=== PATIENT | female | born 1985 | race Hispanic/Latino ===

== ENCOUNTER 2018-10-04 12:38 | Inpatient (IN) | payer BC ==
[2018-10-04] MEDS ORDERED: OXYTOCIN/LR 20 UNIT/1,000 ML BAG IV ONE (13:53)
[2018-10-04] MEDS ORDERED: METHYLERGONOVINE 0.2MG/ML AMP IM ONE (13:53)
[2018-10-04] MEDS ORDERED: CARBOPROST TROME 250 MCG/ML IM ONE (13:53)
[2018-10-04] MEDS ORDERED: LIDOCAINE 1% MPF 30 ML VIAL ONE (13:54)
[2018-10-04] MEDS ORDERED: CARBOPROST TROME 250 MCG/ML IM PRN ×2 (14:28→16:37)
[2018-10-04] MEDS ORDERED: Ringers Lactate 1,000 ML IV PRN (14:28)
[2018-10-04] MEDS ORDERED: METHYLERGONOVINE 0.2MG/ML AMP IM PRN ×2 (14:28→16:37)
[2018-10-04 14:54] LABS: Absolute Lymphocytes (CBC) 2.1 K/uL (0.7-4.9); Absolute Monocytes 0.9 K/uL (0.1-1.3); Absolute Neutrophil 10.7 K/uL (1.8-8.0); Basophils % 0.6 % (0-1.3); Eosinophils % 0.8 % (0-4.4); Hematocrit 37.5 % (36.0-45.0); Lymphocytes % 15.1 % (15.3-44.8); MPV 9.1 fL (7.6-11.3); Monocytes % 6.7 % (3.3-12.3); RBC Red Blood Cell Count 4.93 M/uL (3.86-4.86); RPR Titer ND
[2018-10-04 14:55] LABS: Urine Appearance CLEAR; Urine Bilirubin NEGATIVE (NEG); Urine Blood TRACE (NEG); Urine Color YELLOW; Urine Glucose NEGATIVE (NEG); Urine Protein NEGATIVE (NEG); Urine Specific Gravity 1.015 (1.005-1.030); Urine Urobilinogen 0.2 mg/dL (0.2-1.0); Urine pH 5.5 (5.0-7.0)
[2018-10-04 15:00] LABS: Urine Microscopic Reflex ORDER UMIC
[2018-10-04] MEDS ORDERED: Ringers Lactate 1,000 ML IV SCH (15:00)
[2018-10-04] MEDS ORDERED: OXYTOCIN/LR 20 UNIT/1,000 ML BAG IV SCH ×2 (15:00→17:00)
[2018-10-04 15:34] LABS: Urine Bacteria 20-50 /HPF (<20); Urine Culture Reflex Order REFLEXED; Urine Mucus 1+ /HPF (NONE SEEN); Urine RBC <5 /HPF (NONE SEEN)
[2018-10-04] MEDS ORDERED: METHYLERGONOVINE 0.2 MG TAB PO PRN (16:37)
[2018-10-04] MEDS ORDERED: ACETAMINOPHEN 500 MG TAB PO PRN (16:37)
[2018-10-04] MEDS ORDERED: ONDANSETRON 4 MG (ODT) TAB PO PRN (16:37)
[2018-10-04] MEDS ORDERED: IBUPROFEN 200 MG TAB PO PRN (16:37)
--- NOTE | 2018-10-04 16:40 | P.BOP ---
Preoperative diagnosis: 39+ wk Postoperative diagnosis: viable male infant delivered Primary procedure: SCVD Secondary procedure: repair 1 degree laceration/local Estimated blood loss: 350 Anesthesia: Local Complications: None Transferred to: Other (273) Condition: Good
--- NOTE | 2018-10-04 19:26 | PREOPHP ---
Date of Admission: 10/04/2018 History Of Present Illness: Ms. Hernandez is a 33-year-old, , female, 2, para 1-0-0-1, at 39+ weeks gestation. She has been followed by me during this without significa nt complications. She is admitted in labor, noted to be 5 cm dilated after starting contractions mor e frequently about midnight to this morning. The baby has been active. She denies rupture of membra claudia. Past Medical History: Please see record. Family History: Please see record. Review of Systems: She reports no recent cough, cold, fever, or chills. No recent nausea or vomiting. She denies any b reast lumps or breast knots. Baby has been active. She denies any bowel or bladder issues. Physical Examination: General: Reveals a pleasant female, in no apparent distress, in mild discomfort. Neck: Supple without adenopathy or thyromegaly. Lungs: Clear. Cardiac: Regular rate and rhythm without murmurs. Breasts: Not examined. Abdomen: Estimated weight 7+ pounds. Pelvic: Cervix now noted to be 7 cm dilated, vertex presentation, -1 station. Extremities: No cyanosis, clubbing, or edema. Impression: 39+ week , active labor. Plan: The patient will be admitted. A scalp electrode placed. We will augment with Pitocin b ecause contractions are only every 4-5 minutes apart. She is content to not receive any analgesia at this point. MARYLOU/MAHAMED Voice ID: [id number]
[2018-10-04 22:23] LABS: RPR (Rapid Plasma Reagin) NON-REACT (NON-REACT)
[2018-10-05 15:19] VITALS: BP 120/78; TEMP 98.1
--- NOTE | 2018-10-05 17:26 | OP ---
Surgeon: Phil Segal MD Delivery Summary: Ms. Hernandez is a 33-year-old, , female, 2, para 1-0-0-1, a t 39+ weeks gestation, admitted with contractions getting stronger since midnight and noted to be 5 c m dilated. Rupture of membranes was performed. Pitocin augmentation of labor was begun because of s omewhat irregular contractions. She had a first stage of labor of approximately 16 hours and 9 minut es, second stage of labor of 13 minutes. She delivered by spontaneous controlled vaginal delivery an 8-pound male infant, 9 and 9 with no analgesia. After delayed cord clamping, cord was clamped , cut, and the infant placed on mother's upper abdomen. Cord blood was obtained. Placenta was spont aneously expelled and appeared to be intact. Intrauterine examination revealed no retained placental fragments. She suffered a small right posterior perineal first-degree laceration, which was repaire d with a [id number] suture of 3-0 Vicryl. Estimated total blood loss was approximately 350 cc. MARYLOU/MAHAMED Voice ID: [id number] Report ID: [id number]
--- NOTE | 2018-10-05 17:32 | DS ---
Final Hospital Discharge Diagnosis: 39+ week , delivered. Complications: None. Procedures: Artificial rupture of membranes. Pitocin augmentation of labor. Spontaneous controlled vaginal delivery of viable male . Repair of first degree perineal laceration. Hospital Course: The patient is a 33-year-old, , female, 2, para 1-0-0-1, a t term, admitted in labor. She had an uneventful labor and delivery, augmented with Pitocin. She del ivered an 8-pound male infant, 9 and 9, was dismissed on the first day, ambulatory, on a select diet with routine post vaginal delivery activity restrictions, to be seen back in my offi ce in 1 week and 6 weeks. She had an admission hemoglobin and hematocrit of 12.3 and 37.5, dismissal hematocrit of 34.8. She is Rh positive blood type. Rubella immune. RPR nonreactive. She will be dismissed to take ibuprofen or Tylenol for any discomfort and to continue taking her iron an d vitamins. MARYLOU/MAHAMED Voice ID: [id number] Report ID: [id number]
[2018-10-09 03:59] LABS: HBsAG Nonreactive (Nonreactive)
== END 2018-10-05 19:15 | disposition home or self-care (01) | DRG 807 ==
LOC: L&D 12:38 → 2ND-WC 13:42
PROVIDERS: ADMIT Specialist; ATTEND Specialist
PROC: 10E0XZZ Delivery of Products of Conception, External Approach (ICD-10-PCS; principal; 2018-10-04)
PROC: 0HQ9XZZ Repair Perineum Skin, External Approach (ICD-10-PCS; 2018-10-04)
PROC: 10907ZC Drainage of Amniotic Fluid, Therapeutic from Products of Conception, Via Natural or Artificial Opening (ICD-10-PCS; 2018-10-04)
DX: O70.0 First degree perineal laceration during delivery (principal); Z37.0 Single live birth; Z3A.39 39 weeks gestation of pregnancy
CPT/HCPCS: 36415; 81003; 81015; 85014; 85025; 86592; 86901; 87086; 87088; 87340; J2210; J2590

== ENCOUNTER 2020-06-12 12:03 | Day surgery (SDC) | payer BC ==
--- NOTE | 2020-06-12 11:16 | PREOPHP ---
Date of Admission: 06/12/2020 History Of Present Illness: Ms. Hernandez is a 35-year-old female, 3, para 2- 0-0-2, now at approximately 11 weeks gestation. She was seen initially for care last week, but at that time only a 7+ week size gestational sac was seen. This was confirmed with no evidence of cardiac motion on ultrasound through [facility] 2 days ago. Because of this, she is scheduled for a dila tation and curettage of uterine endometrium for missed AB. Past Medical History: Includes 2 prior vaginal deliveries without complications. She also had a rup tured L5 disk. Medications: She is on no medications other than vitamins currently. Allergies: SHE HAS NO KNOWN ALLERGIES. Social History: She does not smoke. Family History: Noncontributory. Review of Systems: She reports no recent cough, cold, fever, or chills. No recent nausea. No recent breast, knots or l umps. No bowel or bladder issues. Physical Examination: General: female, in no apparent distress. Neck: Supple without adenopathy or thyromegaly. Lungs: Clear. Cardiac: Regular rate and rhythm without murmurs. Abdomen: Nontender without masses. Pelvic: Normal female external genitalia. Vaginal vault is pink, rugated. No blood noted. Bimanua l, no abnormalities. Extremities: No cyanosis, clubbing, or edema. Impression: Missed . Plan: Patient will undergo dilatation and curettage for completion of . Risks and benefits are discussed and she has signed operative permit in my presence. MARYLOU/MAHAMED Voice ID: [id number]
[2020-06-12] MEDS ORDERED: DOXYCYCLINE 200 MG in NA CHLORIDE 0.9% 250 ML IVPB ONE (12:30)
[2020-06-12 12:33] LABS: Absolute Lymphocytes (CBC) 2.6 K/uL (0.7-4.9); Basophils % 0.6 % (0-1.3); Hematocrit 36.3 % (36.0-45.0); Lymphocytes % 29.2 % (15.3-44.8); MPV 8.6 fL (7.6-11.3); RBC Red Blood Cell Count 4.89 M/uL (3.86-4.86)
[2020-06-12] MEDS ORDERED: Ringers Lactate 1,000 ML IV ONE (12:34)
[2020-06-12] MEDS ORDERED: OXYTOCIN 10 UNIT/ML ML IV ONE (12:56)
[2020-06-12] MEDS ORDERED: SILVER NITRATE 1 APPL TOP ONE ×2 (12:56→14:58)
[2020-06-12] MEDS ORDERED: METHYLERGONOVINE 0.2MG/ML AMP IM ONE (12:57)
[2020-06-12] MEDS ORDERED: CARBOPROST TROME 250 MCG/ML IM ONE (13:00)
[2020-06-12] MEDS ORDERED: FENTANYL CITR 100 MCG/2 ML ONE (13:29)
[2020-06-12] MEDS ORDERED: MIDAZOLAM HCL 2 MG/2 ML INJ ONE (13:29)
[2020-06-12] MEDS ORDERED: LIDOCAINE 1% MPF 5 ML VIAL ONE (13:29)
[2020-06-12] MEDS ORDERED: propofoL 200 MG/20 ML VIAL IV ONE (13:29)
[2020-06-12] MEDS ORDERED: KETOROLAC 30 MG/ML INJ ONE (14:16)
[2020-06-12] MEDS ORDERED: dexAMETHasone 10 MG/ML VIAL ONE (14:16)
[2020-06-12] MEDS ORDERED: ONDANSETRON 4 MG/2 ML VIAL ONE (14:18)
[2020-06-12 14:46] VITALS: O2SAT 100
--- NOTE | 2020-06-12 14:46 | OP ---
Surgeon: Phil Segal MD Preoperative Diagnosis: Missed . Postoperative Diagnosis: Missed . Procedure: Dilatation and curettage of uterine endometrium. Description Of Procedure: After satisfactory level of general anesthesia was obtained, the patient w as prepped and draped in the usual fashion in high leg holders. A weighted speculum was placed in po sterior vagina. The cervix was visualized and grasped with a single-tooth tenaculum. Cervix was dil ated to accept an 8 curved suction curette productive of moderate amount of tissue. This was followe d by sharp curettage with Liam curette and then repeat suction curettage. No abnormalities were no vesta. Estimated total blood loss less than 15 mL. The patient was awakened and taken to [facility] in satisfactory condition. She received 200 mg of doxycycline for antibiotic prophylaxis. Anesthesia: Wilfred Payne CRNA and Mikael Chopra MD. Final Hospital Discharge Diagnosis: 11+ week with missed . Complications: None. Procedures: Dilatation and curettage of uterine endometrium. Hospital Course: The patient is a 35-year-old female, [facility] with intrauterine demise/missed noted on 2 separate ultrasoun d examinations. Because of this, she underwent dilatation and curettage for completion of . She was dismissed to be seen back in my office in 1 week with 4 tablets 100 mcg of misoprostol to ta ke 1 every 6 hours. Lab work included Rh positive blood type and hemoglobin and hematocrit of 12.2 and 36.3. She was dismissed with the usual post D and C activity restrictions. MARYLOU/MAHAMED Voice ID: [id number] Report ID: [id number]
[2020-06-12 15:34] VITALS: BP 105/52; TEMP 97.8
== END 2020-06-12 15:40 | disposition home or self-care (01) ==
LOC: OR 12:03
PROVIDERS: ATTEND Specialist
PROC: 10D17ZZ Extraction of Products of Conception, Retained, Via Natural or Artificial Opening (ICD-10-PCS; principal; 2020-06-12 13:30)
DX: O02.1 Missed abortion (principal)
CPT/HCPCS: 85025; 36415; 88305; 59820; J2704; J2210; J2590; J2250; J3010; J1100; J7120; J7050; J2405

== ENCOUNTER 2023-05-03 04:43 | Emergency (ER) | payer BC ==
[2023-05-03 05:30] LABS: Absolute Lymphocytes (CBC) 4.1 K/uL (0.7-4.9); Hematocrit 36.3 % (36.0-45.0); Lymphocytes % 38.8 % (15.3-44.8); MCV 66.6 fL (80-100); MPV 7.9 fL (7.6-11.3); Platelets 317 thou/uL (152-406); Protime INR 1.13; RBC Red Blood Cell Count 5.46 M/uL (3.86-4.86)
[2023-05-03 05:52] LABS: Albumin 3.9 g/dL (3.4-5.0); Bilirubin Direct 0.2 mg/dL (0-0.2); Bilirubin Indirect, Calculated 0.5 mg/dL (0.2-0.8); Bilirubin Total 0.7 mg/dL (0.2-1.0); Magnesium 1.8 mg/dL (1.6-2.4); Protein, Total 7.9 g/dL (6.4-8.2)
[2023-05-03 05:56] LABS: Potassium 2.6 mEq/L (3.5-5.1)
--- NOTE | 2023-05-03 06:50 | ER ---
Nurse's Notes [facility] Name: Radha Hernandez Age: 38 yrs Sex: Female : 1985 Arrival Date: 05/03/2023 Time: 04:43 Bed 8 Private MD: Diagnosis: Tension-type headache;Anxiety disorder, unspecified;Anxiety attack Presentation: 05/03 04:51 Chief complaint: Patient states: I started getting a headache around 0200 with tension vc1 to my neck, now both hands are tingling and I have numbness and tightness to them. Coronavirus screen: Client denies travel out of the [place] in the last 14 days. At this time, the client does not indicate any symptoms associated with coronavirus-19. Ebola Screen: Patient negative for fever greater than or equal to 101.5 degrees Fahrenheit, and additional compatible Ebola Virus Disease symptoms Patient denies exposure to infectious person. Patient denies travel to an Ebola-affected area in the 21 days before illness onset. No symptoms or risks identified at this time. Initial Sepsis Screen: Does the patient meet any 2 criteria? RR > 20 per min. HR > 90 bpm. Yes Does the patient have a suspected source of infection? No. Patient's initial sepsis screen is negative. Risk Assessment: Do you want to hurt yourself or someone else? Patient reports no desire to harm self or others. Onset of symptoms was May 03, 2023 at 02:00. 04:51 Method Of Arrival: Ambulatory vc1 04:51 Acuity: PAYTON 3 vc1 Triage Assessment: 04:57 General: Appears in no apparent distress. uncomfortable, Behavior is anxious, restless. vc1 Pain: Denies pain. EENT:. Neuro: Level of Consciousness is awake, alert, obeys commands, Oriented to person, place, time, situation, Appropriate for age Reports headache numbness in right arm and left arm. Cardiovascular: No deficits noted. Respiratory: Airway is patent Respiratory effort is even, unlabored, Respiratory pattern is regular, symmetrical. GI: No deficits noted. No signs and/or symptoms were reported involving the gastrointestinal system. : No deficits noted. No signs and/or symptoms were reported regarding the genitourinary system. Derm: No deficits noted. No signs and/or symptoms reported regarding the dermatologic system. Musculoskeletal: No deficits noted. No signs and/or symptoms reported regarding the musculoskeletal system. 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 Patient/guardian denies using alcohol, street drugs. - Family history:: not pertinent. Screenin:54 [facility] ED Fall Risk Assessment (Adult) History of falling in the last 3 months, vc1 including since admission No falls in past 3 months (0 pts) Confusion or Disorientation No (0 pts) Intoxicated or Sedated No (0 pts) Impaired Gait No (0 pts) Mobility Assist Device Used No (0 pt) Altered Elimination No (0 pt) Score/Fall Risk Level 0 - 2 = Low Risk Oriented to surroundings, Maintained a safe environment, Educated pt \T\ family on fall prevention, incl call for assistance when getting out of bed. Abuse screen: Denies threats or abuse. Nutritional screening: No deficits noted. Tuberculosis screening: No symptoms or risk factors identified. Assessment: 05:26 Reassessment: PT AMBULATED FROM RESTROOM TO EXAMINATION RM 8 WITHOUT ASSISTANCE. AND IS rv ABLE TO MOVE HEAD AND NECK WITHOUT COMPLAINS. 06:29 Reassessment: Patient states symptoms have improved. General: Behavior is calm. vc1 06:30 Reassessment: Patient and/or family updated on plan of care and expected duration. Pain vc1 level reassessed. Patient is alert, oriented x 3, equal unlabored respirations, skin warm/dry/pink. Vital Signs: 04:51 BP 175 / 85; Pulse 110; Resp 24; Temp 99.4; Pulse Ox 98% ; vc1 05:30 BP 154 / 61; Pulse 105; Resp 20; Pulse Ox 100% ; vc1 06:30 BP 118 / 64; Pulse 96; Resp 19; Pulse Ox 99% ; vc1 ED Course: 04:51 Patient arrived in ED. vc1 04:51 Albert Quintana MD is Attending Physician. sp4 04:53 Triage completed. vc1 04:53 Arm band placed on right wrist. vc1 04:54 Patient has correct armband on for positive identification. Bed in low position. Call vc1 light in reach. Pulse ox on. NIBP on. 05:00 Inserted saline lock: 20 gauge in right forearm, using aseptic technique. Blood rv collected. 05:04 Sudarshan Baptiste, RN is Primary Nurse. rv 05:24 CT Head Brain wo Cont In Process Unspecified. EDMS 07:02 No provider procedures requiring assistance completed. IV discontinued, intact, vc1 bleeding controlled, No redness/swelling at site. Pressure dressing applied. 07:03 Provided Education on: what to do during panic attack. vc1 Administered Medications: 07:01 Drug: Cyclobenzaprine PO 10 mg Route: PO; vc1 07:01 Follow up: Response: Medication administered at discharge. vc1 07:02 Drug: Ibuprofen PO 800 mg Route: PO; vc1 07:02 Follow up: Response: Medication administered at discharge. vc1 Medication: 04:54 VIS not applicable for this client. vc1 Outcome: 06:50 Discharge ordered by . sp4 07:03 Discharged to home ambulatory. vc1 07:03 Condition: good 07:03 Discharge instructions given to patient, Instructed on discharge instructions, follow up and referral plans. medication usage, Demonstrated understanding of instructions, follow-up care, medications, Prescriptions given X 2. 07:20 Patient left the ED. ph Signatures: Dispatcher [employer] EDTX Anu Diaz, CALLY ALAMO Sudarshan Baptiste, RN Maral Renee RN RN vc1 Albert Quintana MD MD sp4 Corrections: (The following items were deleted from the chart) 04:53 04:53 PMHx: Unable to Obtain; vc1 vc1
--- NOTE | 2023-05-03 06:50 | EDPHYS ---
Physician Documentation [facility] Name: Radha Hernandez Age: 38 yrs Sex: Female : 1985 Arrival Date: 05/03/2023 Time: 04:43 Bed 8 Private MD: ED Physician Albert Quintana HPI: 05/03 05:07 This 38 yrs old Female presents to ER via Ambulatory with complaints of sp4 headache, anxiety . 05:07 Very pleasant 38-year-old female presents with acute onset of the headache. Patient sp4 states that in January she fell onto the floor and struck her head against the floor. She presumes that this may be relevant to her headache today. Patient also is having moderate to severe anxiety on presentation. . 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 Patient/guardian denies using alcohol, street drugs. - Family history:: not pertinent. ROS: 05:07 Constitutional: Negative for fever, chills, and weight loss, Neuro: Negative for sp4 weakness, numbness, tingling, and seizure, positive for headache 05:07 All other systems are negative. Exam: 05:07 Constitutional: This is a well developed, well nourished patient who is awake, alert, sp4 moderate to severe anxiety, pressured speech, moderate distress secondary to anxiety Head/Face: Normocephalic, atraumatic. Eyes: Pupils equal round and reactive to light, extra-ocular motions intact. Lids and lashes normal. Conjunctiva and sclera are not injected. Cornea within normal limits. Periorbital areas with no swelling, redness, or edema. ENT: Nares patent. No nasal discharge, no septal abnormalities noted. Tympanic membranes are normal and external auditory canals are clear. Oropharynx with no redness, swelling, or masses, exudates, or evidence of obstruction, uvula midline. Mucous membranes moist. Neck: Trachea midline, no thyromegaly or masses palpated, and no cervical lymphadenopathy. Supple, full range of motion without nuchal rigidity, or vertebral point tenderness. Chest/axilla: Normal chest wall appearance and motion. Nontender with no deformity. No lesions are appreciated. Cardiovascular: Regular rate and rhythm with a normal S1 and S2. No gallops, murmurs, or rubs. Normal PMI, no JVD. No pulse deficits. Respiratory: Lungs have equal breath sounds bilaterally, clear to auscultation and percussion. No rales, rhonchi or wheezes noted. No increased work of breathing, no retractions or nasal flaring. Abdomen/GI: Soft, non-tender, with normal bowel sounds. No distension or tympany. No guarding or rebound. No evidence of tenderness throughout. Back: No spinal tenderness. No costovertebral tenderness. Skin: Warm, dry with normal turgor. Normal color with no rashes, no lesions, and no evidence of cellulitis. MS/ Extremity: Pulses equal, no cyanosis. Neurovascular intact. Full, normal range of motion. Neuro: Awake and alert, GCS 15, oriented to person, place, time, and situation. Cranial nerves II-XII grossly intact. Motor strength 5/5 in all extremities. Sensory grossly intact. Psych: Awake, alert, with orientation to person, place , moderate to severe anxiety on exam bordering on panic attack Vital Signs: 04:51 BP 175 / 85; Pulse 110; Resp 24; Temp 99.4; Pulse Ox 98% ; vc1 05:30 BP 154 / 61; Pulse 105; Resp 20; Pulse Ox 100% ; vc1 06:30 BP 118 / 64; Pulse 96; Resp 19; Pulse Ox 99% ; vc1 MDM: 04:53 Patient medically screened. sp4 06:38 ED course: COMPARISON: None. TECHNIQUE: Head/brain axial images acquired without sp4 contrast. Coronal and sagittal reformats created. Exam performed according to departmental dose-optimization program which includes automated exposure control, adjustment of mA and/or kV according to patient size, and/or use of iterative reconstruction technique. FINDINGS: No midline shift, mass effect, intracranial hemorrhage, or hydrocephalus. Brain parenchyma unremarkable. Paranasal sinuses clear. Mastoid air cells clear. No skull fracture or significant skull lesion. IMPRESSION: Unremarkable CT head/brain without contrast. . 06:47 Data reviewed: vital signs, nurses notes, lab test result(s), radiologic studies, CT sp4 scan. Consideration of Admission/Observation Patient was admitted/placed on observation. ED course: CT today is normal, labs reveal hypokalemia secondary to acute anxiety and hyperventilation. Patient's states patient is under significant stress at this time and this may have contributed to her tension headache. Patient describes what is a tension headache which was bad enough to precipitate anxiety attack. Patient has refused any medications for anxiety. But did agree to take medicine for the headache will advise patient to take ibuprofen every 6 hours as needed for the headache and some Flexeril as a measure to help with muscle tension. . 05/03 04:52 Order name: Basic Metabolic Panel; Complete Time: 06:38 sp4 05/03 04:52 Order name: CBC with Diff sp4 05/03 04:52 Order name: LFT's; Complete Time: 06:38 sp4 05/03 04:52 Order name: Magnesium; Complete Time: 06:38 sp4 05/03 04:52 Order name: NT PRO-BNP; Complete Time: 06:38 sp4 05/03 04:52 Order name: PT-INR; Complete Time: 06:38 sp4 05/03 05:04 Order name: Test, Serum; Complete Time: 06:38 rv 05/03 04:53 Order name: CT Head Brain wo Cont sp4 05/03 04:52 Order name: IV Saline Lock; Complete Time: 04:58 sp4 05/03 04:52 Order name: Labs collected and sent; Complete Time: 04:58 sp4 05/03 04:52 Order name: O2 Per Protocol; Complete Time: 04:58 sp4 05/03 04:52 Order name: O2 Sat Monitoring; Complete Time: 04:59 sp4 Administered Medications: 07:01 Drug: Cyclobenzaprine PO 10 mg Route: PO; vc1 07:01 Follow up: Response: Medication administered at discharge. vc1 07:02 Drug: Ibuprofen PO 800 mg Route: PO; vc1 07:02 Follow up: Response: Medication administered at discharge. vc1 Disposition Summary: 05/03/23 06:50 Discharge Ordered Location: Home sp4 Problem: new sp4 Symptoms: have improved sp4 Condition: Stable sp4 Diagnosis - Tension-type headache sp4 - Anxiety disorder, unspecified sp4 - Anxiety attack sp4 Followup: sp4 - With: Private Physician - When: 7 - 10 days - Reason: Re-evaluation by your physician Discharge Instructions: - Discharge Summary Sheet sp4 - Tension Headache, Adult, [id number] sp4 Forms: - Patient Portal Instructions sp4 Prescriptions: - Ibuprofen 600 mg Oral Tablet - take 1 tablet by ORAL route every 8 hours As needed PRN headache; 30 tablet; sp4 Refills: 0, Product Selection Permitted - Cyclobenzaprine 10 mg Oral Tablet - take 1 tablet by ORAL route every 8 hours As needed PRN muscle tension; 30 sp4 tablet; Refills: 0, Product Selection Permitted Signatures: Dispatcher [employer] Maral Carias RN RN vc1 Albert Quintana MD MD sp4 Corrections: (The following items were deleted from the chart) 04:53 04:53 PMHx: Unable to Obtain; vc1 vc1 06:10 04:53 Test, Urine+UC.LAB.BRZ ordered. EDMS EDMS
[2023-05-03] MEDS ORDERED: CYCLOBENZAPRINE 10 MG TAB ONE (07:03)
[2023-05-03] MEDS ORDERED: IBUPROFEN 400 MG TAB ONE (07:03)
[2023-05-03 07:30] VITALS: TEMP 99.4
[2023-05-03 07:45] VITALS: BP 118/64; O2SAT 99
[2023-05-03 09:07] LABS: Blood Morphology Comment NOTED (NOT SEEN); Platelet Estimate ADEQ; White Blood Cell Scan OK (OK)
--- NOTE | 2023-05-03 17:44 | RAD REPORT ---
EXAM DESCRIPTION: CT Head/Brain Without Contrast CLINICAL HISTORY: Headache acute COMPARISON: None. TECHNIQUE: Head/brain axial images acquired without contrast. Coronal and sagittal reformats created . Exam performed according to departmental dose-optimization program which includes automated exposur e control, adjustment of mA and/or kV according to patient size, and/or use of iterative reconstructi on technique. FINDINGS: No midline shift, mass effect, intracranial hemorrhage, or hydrocephalus. Brain parenchyma unremarkable. Paranasal sinuses clear. Mastoid air cells clear. No skull fracture or significant skull lesion. IMPRESSION: Unremarkable CT head/brain without contrast. Electronically signed by: Hermelindo Leon MD 05/03/2023 5:37 AM CDT Due to temporary technical issues with the PACS/Fluency reporting system, reports are being signed by the in house radiologists without review as a courtesy to insure prompt reporting. The interpreting radiologist is fully responsible for the content of the report.
== END 2023-05-03 07:20 | disposition home or self-care (01) ==
LOC: ER 04:43
DX: G44.209 Tension-type headache, unspecified, not intractable (principal); F41.0 Panic disorder [episodic paroxysmal anxiety]; F41.9 Anxiety disorder, unspecified
CPT/HCPCS: 36415; 70450; 80048; 80076; 83735; 83880; 84703; 85025; 85610